=== PATIENT | male | born 1990 | race African-American/Black ===

== ENCOUNTER 2019-04-23 22:44 | Emergency (ER) | payer MEDICAID ==
[~2019-04-23] VITALS: Ht 185.4 cm; Wt 125.0 kg
[2019-04-23] MEDS ORDERED: SODIUM CHLORIDE 0.9% 1,000 ML IV ONE (23:38)
[2019-04-23] MEDS: METOPROLOL TARTRATE 5MG/5ML VIAL IV SCH (23:51)
[2019-04-24 00:15] LABS: CHLORIDE 104 mEq/L (98-107)
[2019-04-24] MEDS: METOPROLOL TARTRATE 5MG/5ML VIAL IV SCH ×2 (00:15→00:25)
[2019-04-24] MEDS ORDERED: HYDROCODONE/ACETAMINOPHEN 10/325MG TABLET PO ONE (00:15)
[2019-04-24 00:19] LABS: BASOPHILS % 0.7 % (0.0-2.0); HEMATOCRIT. 43.6 % (42.0-52.0); HEMOGLOBIN. 14.8 g/dL (14.0-18.0); LYMPHOCYTES % 18.1 % (20.0-50.0); MEAN CORPUSCULAR HEMOGLOBIN 29.1 pg (28.0-32.0); MEAN CORPUSCULAR VOLUME 85.9 fL (80.0-94.0); MONOCYTES % 7.6 % (2.0-8.0); NEUTROPHILS % 72.6 % (40.0-76.0); PLATELET 340 x1000/uL (130-400); RED BLOOD CELL COUNT 5.08 mill/uL (4.7-6.1); RED CELL DISTRIBUTION WIDTH 13.9 % (11.6-14.6)
[2019-04-24] MEDS ORDERED: DILTIAZEM HCL 5MG/ML 5ML VIAL IV ONE (01:30)
[2019-04-24] MEDS ORDERED: MORPHINE SULFATE 4 MG/ML CPJ (NOT FOR IM USE) IV NR (01:45)
[2019-04-24 03:16] VITALS: BP 126/85
== END 2019-04-24 03:18 | disposition home or self-care (01) ==
LOC: ER 22:44
DX: I48.20 Chronic atrial fibrillation, unspecified (principal); F17.200 Nicotine dependence, unspecified, uncomplicated; E11.9 Type 2 diabetes mellitus without complications
CPT/HCPCS: 36415; 71045; 80053; 83880; 84484; 85025; 93005; 96374; 96375; 99284; J2270; J3490; J7030

== ENCOUNTER 2019-09-13 17:31 | Emergency (ER) | payer MEDICAID ==
[~2019-09-13] VITALS: Ht 195.6 cm; Wt 129.0 kg
[2019-09-13] MEDS ORDERED: ONDANSETRON HCL 4MG/2ML INJ IV STA (18:36)
[2019-09-13] MEDS ORDERED: MORPHINE SULFATE 4 MG/ML CPJ (NOT FOR IM USE) IV STA (18:36)
[2019-09-13] MEDS ORDERED: FAMOTIDINE 20MG/2ML VIAL IV STA (18:36)
[2019-09-13 18:54] LABS: BASOPHILS % 0.5 % (0.0-2.0); EOSINOPHILS % 2.5 % (0.0-5.0); HEMATOCRIT. 43.6 % (42.0-52.0); HEMOGLOBIN. 15.5 g/dL (14.0-18.0); LYMPHOCYTES % 16.8 % (20.0-50.0); MEAN CORPUSCULAR HEMOGLOBIN 30.7 pg (28.0-32.0); MEAN CORPUSCULAR VOLUME 86.1 fL (80.0-94.0); MEAN PLATELET VOLUME 8.5 fl (7.4-10.4); MONOCYTES % 7.7 % (2.0-8.0); NEUTROPHILS % 72.5 % (40.0-76.0); PLATELET 256 x1000/uL (130-400); RED BLOOD CELL COUNT 5.06 mill/uL (4.7-6.1); RED CELL DISTRIBUTION WIDTH 14.3 % (11.6-14.6)
[2019-09-13 18:58] LABS: CHLORIDE 104 mEq/L (98-107)
[2019-09-13 19:39] LABS: CLARITY URINE CLEAR (CLEAR); COLOR URINE YELLOW (YELLOW); KETONES URINE TRACE (NEGATIVE); LEUKOCYTE ESTERASE URINE NEGATIVE (NEGATIVE); NITRITE URINE NEGATIVE (NEGATIVE); OCCULT BLOOD URINE NEGATIVE (NEGATIVE); PROTEIN URINE TRACE (NEGATIVE); SPECIFIC GRAVITY URINE 1.032 (1.005-1.030)
[2019-09-13] MEDS ORDERED: MORPHINE SULFATE 4 MG/ML CPJ (NOT FOR IM USE) IV ONE (20:00)
[2019-09-13 21:30] VITALS: BP 126/82
== END 2019-09-13 21:30 | disposition home or self-care (01) ==
LOC: ER 17:31
DX: K80.20 Calculus of gallbladder without cholecystitis without obstruction (principal); E11.9 Type 2 diabetes mellitus without complications; I48.91 Unspecified atrial fibrillation; Z98.890 Other specified postprocedural states
CPT/HCPCS: 36415; 76705; 80053; 81003; 82962; 83690; 85025; 96374; 96375; 96376; 99284; J2270; J2405; J3490